=== PATIENT | female | born 1995 | race Caucasian/White ===

== ENCOUNTER → 2019-12-22 13:26 | Outpatient (CLI) | payer BC, SELFPAY ==
--- NOTE | ~2019-12-22 | US_ITS ---
EXAMINATION: US transvaginal DATE: 12/22/2019 13:46 INDICATION: Abnormal uterine bleeding TECHNIQUE: Multiple endovaginal sonographic images of the pelvis were obtained. COMPARISON: None. FINDINGS: The uterus measures 7.1 x 2.8 x 3.3 cm. The endometrial complex measures 6 mm. The right ov eliezer measures 2.5 x 1.6 x 2.6 cm. The left ovary measures 2.1 x 1.5 x 2.3 cm. There is normal vascular flow in the ovaries. There is no free fluid in the pelvis. IMPRESSION: 1. No sonographic correlate for the patient's symptoms. Reviewed, dictated and finalized at location B.
== END ==
PROVIDERS: Visit Provider Obstetrics & Gynecology
DX: N93.8 Other specified abnormal uterine and vaginal bleeding (principal)
CPT/HCPCS: 76830

== ENCOUNTER → 2021-02-22 08:18 | Outpatient (CLI) | payer MEDICAID, SELFPAY ==
--- NOTE | ~2021-02-22 | US_ITS ---
EXAMINATION: US OB <=14 wk fetus w TV DATE: 02/22/2021 08:58 INDICATION: First trimester dating TECHNIQUE: Real-time pelvic transabdominal and transvaginal ultrasound was performed. COMPARISON: None. FINDINGS: There is an intrauterine gestational sac. A yolk sac is identified. heart motion is i dentified measuring 168 beats per minute (bpm) by M-mode Doppler. The crown rump length measure s 2.3 cm , which correlates with an estimated gestational age of 9 weeks and 0 day(s) (+/-) 6 day(s). The ovaries are not visualized however no adnexal abnormality is seen. There is no free fluid in the pelvis. IMPRESSION: 1. Live intrauterine with an estimated gestational age of 9 weeks and 0 day(s) (+/-) 6 day( s) and an estimated delivery date of 09/27/2021. Reviewed, dictated and finalized at location A. ECT DEVELOPMENT ENGINEER IMPRESSION: 1. Live intrauterine with an estimated gestational age of 9 weeks and 0 day(s) (+/-) 6 day(s) and an estimated delivery date of 09/27/2021.
== END ==
PROVIDERS: Visit Provider Obstetrics & Gynecology
DX: Z36.89 Encounter for other specified antenatal screening (principal); Z3A.09 9 weeks gestation of pregnancy
CPT/HCPCS: 76801; 76817

== ENCOUNTER 2021-08-11 10:08 | Outpatient (RCR) | payer OTHER, SELFPAY ==
--- NOTE | ~2021-08-11 | US_ITS ---
EXAMINATION: US OB BPP wo non-stress DATE: 08/11/2021 13:28 INDICATION: decelerations during third trimester TECHNIQUE: Real-time pelvic ultrasound was performed. The interpreting radiologist was not present fo r the study. COMPARISON: None. FINDINGS: There is a single living fetus in vertex presentation. The placenta is anterior. heart rate is 150 beats per minute (bpm). Biophysical profile performed by the technologist: breathing (30 sec sustained breathing in 30 minutes): 2 out of 2 movement (3 gross body movements in 30 minutes): 2 out of 2 tone (one episode of ivxhioe-rhgrplgyk-gscueyu limb movement): 2 out of 2 Amniotic fluid pocket (2 cm): 2 out of 2 Total score: 8 out of 8 IMPRESSION: 1. Single living fetus in vertex presentation. 2. Biophysical profile 8 out of 8. Reviewed, dictated and finalized at location A.
[2021-08-11 14:49] VITALS: BP 116/71; PULSE 89
== END 2021-10-21 10:47 | disposition home or self-care (01) ==
LOC: ANHOBOP 10:08
PROVIDERS: Visit Provider Obstetrics & Gynecology Gynecology
DX: O36.8330 Maternal care for abnormalities of the fetal heart rate or rhythm, third trimester, not applicable or unspecified (principal); Z86.16 Personal history of COVID-19; Z3A.34 34 weeks gestation of pregnancy
CPT/HCPCS: 59025; 76819

== ENCOUNTER 2021-08-28 15:15 | Inpatient (IN) | payer OTHER, SELFPAY ==
--- NOTE | ~2021-08-28 | US_ITS ---
EXAMINATION: US OB limited w BPP DATE: 08/29/2021 07:16 INDICATION: Low amniotic fluid index during third trimester TECHNIQUE: Real-time pelvic ultrasound was performed. The interpreting radiologist was not present fo r the study. COMPARISON: 08/28/2021 FINDINGS: There is a single living fetus in vertex presentation. The placenta is anterior. heart rate is 144 beats per minute (bpm). The amniotic fluid index is 4.2 cm which is low (normal range: 7.7 cm to 24.9 cm). Biophysical profile performed by the technologist: breathing (30 sec sustained breathing in 30 minutes): 2 out of 2 movement (3 gross body movements in 30 minutes): 2 out of 2 tone (one episode of nxshgya-jengfzqjl-yrktfqc limb movement): 2 out of 2 Amniotic fluid pocket (2 cm): 2 out of 2 Total score: 8 out of 8 IMPRESSION: 1. Single living fetus in vertex presentation. 2. Biophysical profile 8 out of 8. 3. Oligohydramnios. Reviewed, dictated and finalized at location A.
--- NOTE | ~2021-08-28 | US_ITS ---
EXAMINATION: US OB follow up DATE: 08/28/2021 15:09 INDICATION: Evaluate growth. TECHNIQUE: Real-time ultrasound of the pelvis was performed. The interpreting radiologist was not pre sent for the study. COMPARISON: Comparison to multiple prior studies sequentially, with oldest reviewed study dated 25/05. . FINDINGS: There is a single living fetus in vertex presentation. The placenta is anterior. cardiac activ ity and movement are noted. heart rate is 141 beats per minute (bpm). The amniotic fluid index is 4.8 cm cm, which is below normal. Normal range for amniotic fluid index for gestational age is 7.7-24.9 cm. The following biometric data were obtained: BPD: 90 cm corresponds to gestational age 36 weeks 3 day(s). Head circumference: 318 cm corresponds to gestational age 35 weeks 5 day(s). Abdominal circumference: 292 cm corresponds to gestational age 33 weeks 1 day(s). Femur length: 68 cm corresponds to gestational age 35 weeks 1 day(s). Head circumference to abdominal circumference ratio: 1.09 Estimated weight: 2343 g plus or minus 422 g, 5.6% using Hadlock method. Biophysical profile performed by the technologist: breathing (30 sec sustained breathing in 30 minutes): 2 out of 2 movement (3 gross body movements in 30 minutes: 2 out of 2 tone (one episode of sriqufy-amrowelbr-akhcptp limb movement): 0 out of 2 Amniotic fluid pocket (2 cm): 2 out of 2 Total score: 6 out of 8 Umbilical artery pulsed Doppler demonstrates peak systolic to end-diastolic velocity ratios (S/D rati os) of 2.5 (5th percentile = 1.9, 95th percentile = 3.2). IMPRESSION: 1. Single living fetus in vertex presentation with heart rate of 141 bpm. 2. Oligohydramnios with LUDY of 4.8 cm. 3. Biophysical profile 6 out of 8. 4. Gestational age by ultrasound of 36 weeks 4 day(s) with ultrasound estimated date of delivery (IZABEL ) of 09/21/2021. Please correlate with clinical information or other ultrasounds for most accurate IZABEL . 5. Estimated weight is 2343 g, 5.4% by Hadlock criteria. 6: Normal umbilical Doppler ratios. Reviewed, dictated and finalized at location B. IMPRESSION: 1. Single living fetus in vertex presentation with heart rate of 141 bpm. 2. Oligohydramnios with LUDY of 4.8 cm. 3. Biophysical profile 6 out of 8. 4. Gestational age by ultrasound of 36 weeks 4 day(s) with ultrasound estimated date of delivery (IZABEL) of 09/21/2021. Please correlate with clinical informatio n or other ultrasounds for most accurate IZABEL. 5. Estimated weight is 2343 g, 5.4% by Hadlock criteria. 6: Normal umbilical Doppler ratios.
[2021-08-28 15:45] VITALS: BMI 29.7
[2021-08-28 15:48] VITALS: BP 122/69; PULSE 72
[2021-08-28 16:01] VITALS: BP 121/65; PULSE 74
[2021-08-28 16:16] VITALS: BP 119/67; PULSE 71
--- NOTE | 2021-08-28 16:17 | OBADM ---
This patient, Ashly Desouza, admitted to the OB room OB Post 116 for observation. Patient/family oriented to hospital policies and general routines including ID bracelet, bed and alarms, visiting hours, pain management, procedures, bathroom and other care routines, personal items, smoking policy, room service/diet, and visiting hours. Patient/Family are encouraged to report perceived risks to care and to ask questions if they do not understand what they are told or what they should do.
[2021-08-28 16:23] VITALS: BP 119/67
[2021-08-28 20:58] VITALS: BP 125/74; PULSE 78
[2021-08-29] VITALS (123 sets, daily range): BP systolic 96–126; BP diastolic 48–87; PULSE 60–110; TEMP 36.2–36.8; O2SAT 80–100
--- NOTE | 2021-08-29 07:32 | WPDOBADMIT ---
Obstetrics - Admit Note Admission Note: record reviewed. No pertinent additions to the history and/or any subsequent changes in the physical findings that are not consistent with the expected course of the were found. Additions to the history and/or subsequent changes in the physical findings follow. Here overnight after BPP 6/8 and LUDY low at 4. BPP this am 10/10 and LUDY still 4. Recommend MIL. Patient agrees. Will start Pitocin.
[2021-08-29] MEDS: OXYTOCIN 30 UNITS/NS 500 ML 30 UNITS/500 ML BAG 6 UNITS IV CONT (08:41)
[2021-08-29] MEDS: AMPICILLIN 2 GM/NS 100 ML 2 GM/100 ML BAG IVPB (08:42)
[2021-08-29] MEDS: LACTATED RINGERS 1,000 ML 125 ML IV CONT ×2 (08:43→20:04)
[2021-08-29 09:04] LABS: Basophils Percent Auto 0.2 % (0.2-1.2); Eosinophils Percent Auto 0.3 % (0-4.4); Hematocrit 34.7 % (37.0-47.0); Hemoglobin 11.5 g/dL (12.0-15.0); Immature Granulocyte Absolute 0.05 K/mm3 (0.00-0.031); Immature Granulocyte Percent A 0.6 % (0-0.5); Lymphocytes Absolute Auto 1.47 K/mm3 (0.9-3.2); Lymphocytes Percent Auto 16.5 % (18.3-44.2); Mean Corpuscular HGB Conc 33.1 g/dl (32-36); Mean Corpuscular Hemoglobin 30.9 pg (26-34); Mean Corpuscular Volume 93.3 fl (80-100); Mean Platelet Volume 12.4 fl (7.4-10.4); Monocytes Absolute Auto 0.5 K/mm3 (0.1-0.6); Monocytes Percent Auto 5.9 % (2.6-8.5); Neutrophils Absolute Auto 6.8 K/mm3 (1.3-6.7); Neutrophils Percent Auto 76.5 % (45.5-73.1); Platelet Count Result 171 k/mm3 (150-375); Red Blood Count 3.72 M/mm3 (4.2-5.4); Red Cell Distribution Width 13.2 % (11.5-14.5); White Blood Count 8.9 K/mm3 (4.5-10.0)
--- NOTE | 2021-08-29 09:21 | LDADM ---
This patient, Ashly Desouza, was admitted to Labor/Delivery/Recovery 107 on 08/29/21 at 07:38. Plans for labor, pain management and were discussed with patient. Patient/family oriented to hospital policies and general routines including ID bracelet, bed and alarms, visiting hours, pain management, procedures, bathroom and other care routines, personal items, smoking policy, room service/diet and guest tray routines, security routines, and visiting hours. Patient/Family are encouraged to report perceived risks to care and to ask questions if they do not understand what they are told or what they should do. See OBIX for further documentation.
--- NOTE | 2021-08-29 09:52 | PC.NURSE ---
0700--Pt to US per wheelchair.
--- NOTE | 2021-08-29 09:53 | PC.NURSE ---
4924--Dr. Kay at bedside to report US results. Plan of care discussed. Questions answered. Plan to sara pt to L&D 107.
[2021-08-29] MEDS: AMPICILLIN 1 GM/NS 50 ML 1 GM/50 ML BAG IVPB ×3 (12:35→20:51)
--- NOTE | 2021-08-29 17:33 | PM.OBPNLAB ---
Pain Control Date/time seen: 08/29/21 17:33 Pain control: tolerating well Pelvic Exam Dilation (cm): 1 Effacement (%): 70 station: -2 Amniotic membrane status: Ruptured (clear fluid. ) Status status: Category l Assessment and Plan Assessment: induction ongoing Plan: continuous present management
[2021-08-29] MEDS: ONDANSETRON INJ 4 MG/2 ML VIAL IV PUSH (18:18)
--- NOTE | 2021-08-29 18:57 | WPDANESEPP ---
Anes - Eval Pre Procedure Procedure: Labor epidural Date/Time: 08/29/21 18:57 Surgeon: Eliza Preop Diagnosis: Abd pain with contractions Pre Op Diagnosis: Ultrasound Patient Data Age: 25 Gender: F Height: 1.7 m Weight: 86 kg Last Vital Signs Temp 98 F 08/29/21 18:54 Pulse 90 08/29/21 18:55 BP 120/69 08/29/21 18:55 Pulse Ox 100 08/29/21 18:52 Allergies Allergy/AdvReac Type Severity Reaction Status Date / Time melatonin Allergy Mild dizzy Verified 11/16/19 09:16 Home Medications Medication Instructions Recorded Confirmed Type PNV cmb#95-ferrous fumarate-FA 1 tablet PO DAILY 08/28/21 08/29/21 History [] cholecalciferol (vitamin D3) 50 mcg PO DAILY 08/28/21 08/28/21 History [Vitamin D3] ferrous sulfate [Iron (ferrous 325 mg PO DAILY 08/28/21 08/29/21 History sulfate)] Laboratory Tests 08/29/21 08/29/21 08/29/21 08:57 08:57 08:57 WBC 8.9 K/mm3 K/mm3 (4.5-10.0) RBC 3.72 M/mm3 L M/mm3 (4.2-5.4) Hgb 11.5 g/dL L g/dL (12.0-15.0) Hct 34.7 % L % (37.0-47.0) MCV 93.3 fl fl (80-100) MCH 30.9 pg pg (26-34) MCHC 33.1 g/dl g/dl (32-36) RDW 13.2 % % (11.5-14.5) Plt Count 171 k/mm3 k/mm3 (150-375) MPV 12.4 fl H fl (7.4-10.4) Immature Gran % (Auto) 0.6 % H % (0-0.5) Neut % (Auto) 76.5 % H % (45.5-73.1) Lymph % (Auto) 16.5 % L % (18.3-44.2) [place] % (Auto) 5.9 % % (2.6-8.5) Eos % (Auto) 0.3 % % (0-4.4) Baso % (Auto) 0.2 % % (0.2-1.2) Lymph # (Auto) 1.47 K/mm3 K/mm3 (0.9-3.2) [place] # (Auto) 0.5 K/mm3 K/mm3 (0.1-0.6) Eos # (Auto) 0.0 K/mm3 K/mm3 (0-0.3) Baso # (Auto) 0.0 K/mm3 K/mm3 (0.0-0.1) Abs Immat Gran (auto) 0.05 K/mm3 H K/mm3 (0.00-0.031) Absolute Neuts (auto) 6.8 K/mm3 H K/mm3 (1.3-6.7) Absolute Nucleated RBC 0.0 K/mm3 K/mm3 (0.0-0.012) Nucleated RBC % 0.0 % % (0.0-0.2) RPR Pending Blood Type O Positive Antibody Screen Negative Patient hx anesthesia problems: none Family hx anesthesia problems: none Results Review: All pre-operative results and documents have been reviewed as part of the pre-operative evaluation. [facility] Past Medical History Medical History BMI 25.0-25.9,adult Overweight (BMI 25.0-29.9) and not yet delivered Family History Family History Mother Diabetes mellitus Hypertension Grandparent Cancer Social History Social History Smoking status: Never smoker Alcohol intake: current Alcohol use details: occasional Substance use: never Additional occupation/education comments: [employer] Gender identity (if verbalized by the patient): Female Spiritual care concerns: No Exam Day of Procedure 08/29/21 18:57 Patient weight: overweight Airway: Mallampati scale class II Neurological: alert and oriented
[2021-08-30] VITALS (27 sets, daily range): BP systolic 108–125; BP diastolic 56–77; PULSE 72–138; RESP 16–18; TEMP 36.6–37.3; O2SAT 98–100
--- NOTE | 2021-08-30 00:46 | PM.OBPRVD ---
OB - Delivery Note Procedure Delivery date: 08/30/21 Procedure: Events: Oligohydramnios and Other (COVID + in ) Induction method: AROM and Per Pitocin Protocol Delivery monitor: External FHT and Internal Uterine Route of delivery: Laceration Description: Periurethral and Perineal - 2nd Degree Delivery repair: vicryl (3-0) Specimen: Yes (placenta) Quantitative Blood Loss (ml): 100 Anesthesia type: Epidural Disposition: Floor Baby Date of : 08/30/21 Weeks of gestation at delivery: 36 gender: Male Weight (pounds): 5 Weight (ounces): 9 presentation: vertex position: Right Occiput Anterior Placenta delivery description: Spontaneous Cord Vessel Description: Nuchal Cord (tight x 1 delivered through) and Delayed Cord Clamping score one minute: 8 score five minutes: 9
--- NOTE | 2021-08-30 00:48 | PM.OBDSVD ---
DS: Admitting Diagnosis Discharge Date 09/01/21 Admitting Diagnosis IUP 36 4/ Oligohydramnios Covid + in DS: Discharge Diagnosis Discharge Diagnosis (1) (normal spontaneous vaginal delivery): Code(s): O80 - Encounter for full-term uncomplicated delivery Status: Acute (2) Oligohydramnios: Code(s): O41.00X0 - Oligohydramnios, unspecified trimester, not applicable or unspecified Status: Acute (3) 36 to 37 weeks gestation of : Status: Acute OB - DS: Summary OB Procedures : NST and Ultrasound OB Procedures Intrapartum: Spontaneous Vag Delivery OB Procedures: : None Peripartum Data Delivery Method: Natural Vaginal Laceration Description: Periurethral and Perineal - 2nd Degree complications: none Status at Discharge Functional status at discharge: independent ambulation Overall status at discharge: patient is progressing back to baseline Time Spent with Patient Time attestation: Total time spent providing and/or coordinating discharge services: DS: Data Data Completed and Pending Labs on day of discharge: Labs from last 24 hours 08/29/21 08/29/21 08/29/21 08:57 08:57 08:57 WBC 8.9 RBC 3.72 L Hgb 11.5 L Hct 34.7 L MCV 93.3 MCH 30.9 MCHC 33.1 RDW 13.2 Plt Count 171 MPV 12.4 H Immature Gran % (Auto) 0.6 H Neut % (Auto) 76.5 H Lymph % (Auto) 16.5 L [place] % (Auto) 5.9 Eos % (Auto) 0.3 Baso % (Auto) 0.2 Lymph # (Auto) 1.47 [place] # (Auto) 0.5 Eos # (Auto) 0.0 Baso # (Auto) 0.0 Abs Immat Gran (auto) 0.05 H Absolute Neuts (auto) 6.8 H Absolute Nucleated RBC 0.0 Nucleated RBC % 0.0 RPR Pending Blood Type O Positive Antibody Screen Negative Discharge Plan Discharge Attending physician on discharge: Betina Kay Discharging Clinician: Betina Kay Anticipated Discharge Date/Time: 09/01/21 00:50 Patient Disposition: Home, Self-Care Activity: may shower and pelvic rest Diet: regular Discharge Instructions: Education: Mom and Baby Guide Given to: Mother Follow-Up: Call your delivering provider's office for an appointment to be seen in: 6 Weeks Mom and baby should come to the [facility] for the follow-up appointment. Appointment Date/Time: Thursday, September 02, 2021 at 11:00 am What to expect at your follow-up visit: Blood Pressure Check Physical Assessment Call [phone] if you are unable to keep your appointment time. BREAST CARE: * Wear a snug supportive bra. * For engorgement discomfort: Breast Feeding: * Apply warm moist washcloths * Express milk as needed to relieve engorgement * Wear loose clothing Bottle Feeding: * May apply ice packs * For sore nipples: * Identify correct latch-on * Apply warm moist washcloths before and after nursing * Air dry nipples after nursing * May apply Lansinoh cream to nipples EPISIOTOMY/PERINEAL CARE: * Until bleeding stops, use your micky bottle after urinating * Change your pad frequently throughout the day * You may take sitz baths several times a day (fill your bathtub with warm water and soak for 20 minutes.) Do NOT bathe in the water * No tub baths until seen by your physician - You may shower ACTIVITY: * Rest as much as possible. * Do not exercise or lift anything heavier than your baby (such as laundry or other children.) * Avoid stairs or driving as much as possible. * Do not put anything into the vagina. No douching, tampons, or sexual activity until seen by physician. NOTIFY PHYSICIAN IF YOU HAVE ANY QUESTIONS OR IF ANY OF THE FOLLOWING SYMPTOMS OCCUR: * If your episiotomy becomes red, swollen, or more painful than what you have experienced in the hospital. * If your vaginal bleeding becomes foul smelling. * If your vaginal bleedin
[2021-08-30] MEDS: OXYTOCIN 30 UNITS/NS 500 ML 30 UNITS/500 ML BAG 125 UNITS IV CONT (01:02)
--- NOTE | 2021-08-30 03:32 | OBPPTRN ---
Patient transferred to post room #291 via wheelchair. Support person present. Oriented to unit, room, information board, rooming in, admission packet and security measures. Patient verbalizes understanding.
[2021-08-30] MEDS: IBUPROFEN 600 MG TABLET PO ×2 (09:24→14:09)
[2021-08-30] MEDS: DOCUSATE SODIUM 100 MG CAPSULE PO ×2 (09:24→18:28)
[2021-08-30] MEDS: MULTIVIT/MIN/PREN/FOL AC/IRON TABLET 1 TAB PO (09:24)
--- NOTE | 2021-08-30 12:00 | PC.NURSE ---
Breast pump provided due to ineffective feeding and prematurity. Instructions given on cleaning, care, usage, there should be no pain, pumping schedule for milk production, collection, and storage of human milk. Parents are encouraged to record pumping schedule on the [feeding sheet/pumping log]. Patient was assessed for correct placement, flange size, to pump for comfort and nipple stretching/stimulation for adequate milk production. Mother voiced understanding of the education shared.
[2021-08-30] MEDS: ACETAMINOPHEN 325 MG TABLET 650 MG PO (14:08)
[2021-08-30] MEDS: BENZOCAINE 20% AER SPR (*SP) 56 GM CAN 1 SPRAY TOPICAL (18:28)
[2021-08-30] MEDS: WITCH HAZEL 40 PADS 1 PAD TOPICAL (18:28)
[2021-08-30] MEDS: LANOLIN (LANSINOH) 7.5 GM CREAM 1 APPLIC TOPICAL (18:29)
[2021-08-31] VITALS: BP 118/77; PULSE 72; RESP 16; TEMP 36.4; O2SAT 97
[2021-08-31] MEDS: ACETAMINOPHEN 325 MG TABLET 650 MG PO ×4 (00:07→23:37)
[2021-08-31] MEDS: IBUPROFEN 600 MG TABLET PO ×4 (00:07→23:37)
[2021-08-31 04:38] LABS: Hematocrit 30.3 % (37.0-47.0); Hemoglobin 9.9 g/dL (12.0-15.0)
--- NOTE | 2021-08-31 07:30 | PC.NURSE ---
PT introductions made and plan of care discussed per post , pain management, breast feeding, daily care activities, late baby, and pending discharge to home. PT sole recipient of such care and no barriers to leaning identified, PT received such instructions per one to one discussion, mom baby care guide and demonstrations this shift. PT verbalized understanding of such care.
[2021-08-31 08:30] VITALS: BP 115/63; PULSE 65; RESP 18; TEMP 36.7; O2SAT 99
--- NOTE | 2021-08-31 09:28 | PM.OBPNVD ---
OB - PN: Subj Subjective Date/time seen: 08/31/21 09:28 Patient comments: no complaints and pain well controlled baby status: doing well OB - PN: Obj Data Labs CBC & Chem 7: 08/31/21 03:58 Labs: Laboratory Results - last 24 hr 08/31/21 03:58 Hgb 9.9 L Hct 30.3 L OB - PN A/P Plan day: 1 Plan: routine care Time Spent With Patient Time: Total time spent is greater than 50% in coordination of care (as documented) at patient's floor/unit and/or counseling patient: Exam : Bimanual exam- vagina & uterus: other (Uterus firm, nt @U)
[2021-08-31] MEDS: POLYSACCHARIDE IRON COMPLEX 150 MG CAPSULE PO ×2 (11:37→17:49)
[2021-08-31] MEDS: DOCUSATE SODIUM 100 MG CAPSULE PO ×2 (11:37→17:49)
[2021-08-31] MEDS: MULTIVIT/MIN/PREN/FOL AC/IRON TABLET 1 TAB PO (11:37)
[2021-08-31 20:08] VITALS: BP 114/64; PULSE 72; RESP 18; TEMP 36.4; O2SAT 100
[2021-09-01 05:10] VITALS: BP 119/83; PULSE 77; RESP 20; O2SAT 100
--- NOTE | 2021-09-01 05:16 | ECG_ITS ---
Measurements Intervals [place] Rate: 72 P: 57 MD: 161 QRS: 48 QRSD: 97 T: 65 QT: 372 QTc: 408 Interpretive Statements SINUS RHYTHM BORDERLINE T WAVE ABNORMALITY- ANT/INF LEADS BASELINE ARTIFACT- I, II, III, AVR, AVL, AVF BORDERLINE ECG Electronically Signed On 09-01-2021 5:42:55 CDT by Tommy Begum D.O.
[2021-09-01] MEDS: ACETAMINOPHEN 325 MG TABLET 650 MG PO (05:19)
[2021-09-01] MEDS: SIMETHICONE 80 MG TAB.CHEW PO (05:20)
[2021-09-01] MEDS: IBUPROFEN 600 MG TABLET PO (05:20)
--- NOTE | 2021-09-01 05:27 | PC.NURSE ---
0510 -- pt c/o chest tightness and feeling of heaviness, VS taken, pt. seems calm, states bleeding has not been heavy though pt. looks fairly pale, denies feeling anxious 0515 -- call to Dr. Kay -->orders
[2021-09-01 06:16] LABS: Rapid Plasma Reagin Non-Reactive (NonReactive)
--- NOTE | 2021-09-01 07:39 | PC.NURSE ---
Self care and infant care discharge instructions given including follow up visit date and time. Pt. verbalized understanding. No questions or concerns voiced. Very pleasant and cooperative. FOB at side.
--- NOTE | 2021-09-01 07:42 | PC.NURSE ---
Patient viewed the discharge video Mother & Baby Care, The First Two Weeks . Patient was given the opportunity and encouraged to ask questions. Patient verbalized understanding of information shared and has been given the mother/baby guide for home reference.
--- NOTE | 2021-09-01 08:09 | P.PNOB_ITS ---
OB - PN: Subj Subjective Date/time seen: 09/01/21 08:09 Patient comments: no complaints, pain well controlled and other (had episode of chest pain x 2 and resolved) [place] baby status: doing well and nursing well OB - PN: Obj Data Labs CBC & Chem 7: 08/31/21 03:58 Labs: Laboratory Results - last 24 hr 08/29/21 08:57 RPR Non-reactive OB - PN A/P Plan day: 2 Plan: routine care, discharge home, follow up 6 weeks and other (plan micronor for bc) Time Spent With Patient Time: Total time spent is greater than 50% in coordination of care (as documented) at patient's floor/unit and/or counseling patient: Exam : Bimanual exam- vagina & uterus: other (Uterus firm, nt @U)
[2021-09-01 08:25] VITALS: BP 123/75; PULSE 62; RESP 18; TEMP 36.3; O2SAT 100
[2021-09-01] MEDS: MULTIVIT/MIN/PREN/FOL AC/IRON TABLET 1 TAB PO (08:28)
[2021-09-01] MEDS: DOCUSATE SODIUM 100 MG CAPSULE PO (08:29)
[2021-09-01] MEDS: POLYSACCHARIDE IRON COMPLEX 150 MG CAPSULE PO (08:29)
[2021-09-01] MEDS: MEASLES,MUMPS,RUBELLA VACCINE 0.5 ML VIAL SUB-Q (10:14)
--- NOTE | 2021-09-01 15:50 | PC.NURSE ---
[id number] Introductions were made and Mother led the conversation with her experience and plan to feed her so far and her ability to independently latch infant optimally without discomfort. Reminded parents to use good handwashing technique to prevent infection. Mother is feeding appropriately for growth of and understands stimulating to eat if needed. has had appropriate feedings in the last 24 hours meets the outcomes for weight, output and jaundice at this time. Mother states she is confident to continue effectively her at home or when to call for assistance and denies any additional assistance or education at this time. Mother placed infant skin to skin and burped due to was sleepy and reluctant to wake and feed. RN changed a void and stool diaper, then was eager to breastfeed. Mother assisted to the right breast using cross cradle positioning and latched infant optimally. Reviewed with mom the signs to visualize for good suck/swallow ratios. Reinforced understanding of milk production, transition of milk, signs of adequate intake, prevention/relief of engorgement, responsive after visualizing feeding cues, the different methods of stimulating infant to breastfeed 2-3 hours after the start of the last feeding, community resources, medication information reviewed per [employer] and when to call a provider using the resource of the mom and baby guide/[facility] website. Mother voiced understanding of the education shared.
[2021-09-02 10:52] VITALS: BP 129/80; PULSE 78; RESP 20; TEMP 37.1; O2SAT 98
== END 2021-09-01 10:50 | disposition home or self-care (01) | DRG 560 ==
LOC: ANHOBPP 15:30 → ANHLDR 08-29 07:40 → ANHOB2 08-30 03:33
PROVIDERS: Admitting Provider Obstetrics & Gynecology Gynecology; Visit Provider Obstetrics & Gynecology Gynecology
DX: O41.03X0 Oligohydramnios, third trimester, not applicable or unspecified (principal); O70.1 Second degree perineal laceration during delivery; O71.82 Other specified trauma to perineum and vulva; O69.1XX0 Labor and delivery complicated by cord around neck, with compression, not applicable or unspecified; O76 Abnormality in fetal heart rate and rhythm complicating labor and delivery; Z3A.36 36 weeks gestation of pregnancy; Z37.0 Single live birth; Z86.16 Personal history of COVID-19; R07.9 Chest pain, unspecified
CPT/HCPCS: 36415; 59025; 76815; 76816; 76819; 85014; 85018; 85025; 86592; 86850; 86900; 86901; 88307; 90710; 93005; A9270; J0290; J2405; J2590; J2795; J7120

== ENCOUNTER 2021-12-03 12:22 | Outpatient (CLI) | payer OTHER, SELFPAY ==
--- NOTE | 2021-12-03 | ECHO_ITS ---
Patient Info Name: Ashly Desouza Age: 26 years : 1995 Gender: Female Ht: 67 in Wt: 167 lbs BSA: 1.91 m2 HR: 68 bpm BP: 124 / 75 mmHg Heart Rhythm: Sinus Rhythm Exam Date: 12/03/2021 1:06 PM Exam Location: [facility] Pulmonary Patient Status: Outpatient Admit Date: 12/03/2021 Staff Ordering Physician: NicoViky Dressage Judge: Seda Souza RDCS Attending Provider: Yajaira, Viky PEREA Referring Physician: Nico WILDE; Exam Type: CA echo doppler color flow Study Info Indications R00.2 - Palpitations Complete two-dimensional, color flow and Doppler transthoracic echocardiogram is performed. Summary 1. Complete two-dimensional, color flow and Doppler transthoracic echocardiogram is performed. 2. Left ventricular chamber dimension is normal. 3. Left ventricular systolic function is normal, estimated at 65-70%. 4. There is no increased left ventricular wall thickness. 5. The left ventricular diastolic function is normal. 6. There is trace tricuspid valve regurgitation. 7. Unable to estimate PA systolic pressure due to poor spectral resolution of tricuspid regurgitant jet velocity. Left Ventricle Left ventricular chamber dimension is normal. Left ventricular systolic function is normal, estimated at 65-70%. There is no increased left ventricular wall thickness. The left ventricular diastolic function is normal. Right Ventricle Right ventricular chamber dimension is normal. Right ventricular systolic function is normal. Left Atria Left atrial chamber dimension is normal. Right Atria Right atrial chamber dimension is normal. Aortic Valve The aortic valve is trileaflet. There is no aortic valve stenosis. There is no aortic valve regurgitation. Pulmonic Valve The pulmonic valve is not well visualized. There is trace pulmonic regurgitation. Mitral Valve The mitral valve has normal leaflets. There is no mitral valve regurgitation. Tricuspid Valve The tricuspid valve leaflets are normal. There is trace tricuspid valve regurgitation. Unable to estimate PA systolic pressure due to poor spectral resolution of tricuspid regurgitant jet velocity. Pericardium/Pleural The pericardium appears normal. There is no pericardial effusion. Inferior Vena Cava Normal inferior vena cava with >50% collapse upon inspiration consistent with normal right atrial pressure, 5 mmHg. Aorta The aortic root size at the sinus of Valsalva is normal. Left Ventricular Outflow Tract Name Value Normal LVOT 2D LVOT Diameter 2.1 cm LVOT Doppler LVOT Peak Gradient 3 mmHg LVOT Mean Gradient 2 mmHg LVOT VTI 16 cm LVOT VTI/AV VTI Ratio 0.7 LVOT Stroke Volume 55 ml LVOT CO 4.2 l/min LVOT CI 2.2 l/min/m2 Mitral Valve Name Value Normal
--- NOTE | 2021-12-08 15:56 | WPDHOLTEREM ---
Holter/Event Monitor Holter/Event Monitor Date of procedure: 12/03/21 Holter/Event Procedure: 48 Hr Holter Monitor Indications: Palpitations Conclusion: 1. 48 hour holter monitor on 12/03/21. 2. Underlying rhythm is sinus rhythm. HR range 42-141 bpm; average HR 73 bpm. 3. No premature supraventricular complexes. No supraventricular tachycardia. 4. There are 2 premature ventricular complexes, 1 ventricular couplet, 3 ventricular bigeminy. No ventricular tachycardia. 5. No sinoatrial or atrioventricular blocks. No significant pauses greater than 2 seconds. 6. Patient reports symptom of flutter which demonstrate sinus rhythm, HR at 71 bpm.
== END 2021-12-03 12:23 | disposition home or self-care (01) ==
LOC: ANHCARD 12:23
PROVIDERS: Visit Provider Nurse Practitioner Family
DX: R00.2 Palpitations (principal); F41.9 Anxiety disorder, unspecified; E55.9 Vitamin D deficiency, unspecified
CPT/HCPCS: 93225; 93226; 93306

== ENCOUNTER 2023-04-29 20:55 | Emergency (ER) | payer OTHER, SELFPAY ==
[2023-04-29 21:02] VITALS: BP 137/71; PULSE 92; RESP 18; TEMP 36.6; O2SAT 100
--- NOTE | 2023-04-30 00:11 | PC.NURSE ---
Patient called for ED room. No answer
--- NOTE | 2023-04-30 00:43 | PC.NURSE ---
No answer when called for room.
== END 2023-04-30 00:11 | disposition left against medical advice (07) ==
DX: R51.9 Headache, unspecified (principal)
CPT/HCPCS: 99199

== ENCOUNTER 2023-05-17 16:14 | Outpatient (CLI) | payer OTHER, SELFPAY ==
--- NOTE | ~2023-05-17 | MR_ITS ---
EXAMINATION: MR brain/brain stem wo/w con DATE: 05/17/2023 17:19 INDICATION: Headache TECHNIQUE: Magnetic resonance imaging (MRI) of the brain and brainstem was performed without and with 15 mL Multihance intravenous contrast. Sequences included sagittal and axial T1-weighted SE, axial d iffusion-weighted FS SE, axial 3D SWAN, axial T2-weighted FLAIR, and axial T2-weighted FSE. Postcontr ast axial and coronal T1-weighted SE was obtained. Apparent diffusion coefficient (ADC) maps were cre ated. COMPARISON: None. FINDINGS: There are no areas of restricted diffusion to suggest acute infarction. No intracranial hemorrhage or abnormal intracranial mass lesion. There are no intraparenchymal signal abnormalities seen on the ot her pulse sequences. The ventricles are symmetric and normal in size. There are no abnormal extra-axi al fluid collections. Flow voids are seen in the cerebral arteries on the T2-weighted sequences consi stent with their expected patency. Mucous retention cyst at the floor of the left maxillary sinus. Vi sualized orbits and soft tissues are unremarkable. There are no areas of abnormal enhancement on the post contrast images. IMPRESSION: 1. Normal brain. Reviewed, dictated and finalized at location A. [employer] IMPRESSION: 1. Normal brain.
== END 2023-05-17 16:15 | disposition home or self-care (01) ==
LOC: ANHIMG 16:16
PROVIDERS: PCP Nurse Practitioner Family; Visit Provider Nurse Practitioner Family
DX: R51.9 Headache, unspecified (principal)
CPT/HCPCS: 70553; A9577

== ENCOUNTER 2024-11-03 16:53 | Emergency (ER) | payer OTHER, SELFPAY ==
--- NOTE | 2024-11-03 16:55 | ED.FEMALEGU ---
HPI - Female Genitourinary General Chief complaint: Urogenital-Female Stated complaint: UTI SYMPTOMS Time Seen by Provider: 11/03/24 17:18 Source: patient and RN notes reviewed Mode of arrival: ambulatory Limitations: no limitations History of Present Illness HPI Narrative: 28-year-old female presents with concern for vaginal itching. She reports that started yesterday with itching, skin irritation and redness and white clumpy discharge. She denies concern for STDs. She denies dysuria, frequency, urgency. MD elicited complaint: genital itching Related Data Home Medications ?Medication ?Instructions ?Recorded ?Confirmed ?Last Taken ?Type cholecalciferol (vitamin D3) 50 50 mcg PO DAILY 08/28/21 08/28/21 Unknown History mcg (2,000 unit) tablet (Vitamin D3) ferrous sulfate 325 mg (65 mg 325 mg PO DAILY 08/28/21 08/29/21 08/28/21 12:00 History iron) tablet (Iron (ferrous sulfate)) vit no.95-ferrous 1 tablet PO DAILY 08/28/21 08/29/21 08/28/21 12:00 History fumarate 28 mg-folic acid 800 mcg tablet () Allergies Allergy/AdvReac Type Severity Reaction Status Date / Time iohexol (From contrast - CT, Allergy Severe Swelling Verified 11/03/24 17:15 X-RAY) of Lip/Tongue/Throat terconazole Allergy Intermediate Vaginal Verified 11/03/24 17:15 burning and swelling melatonin Allergy Mild dizzy Verified 11/16/19 09:16 Review of Systems Review of Systems: CONSTITUTIONAL: Denies malaise, chills, sweats, or fever. CARDIOVASCULAR: Denies chest pain, palpitations, or edema. RESPIRATORY: Denies cough or dyspnea. GASTROINTESTINAL: Denies abdominal pain, nausea, vomiting, diarrhea GENITOURINARY: Denies dysuria, frequency, urgency, suprapubic pressure. Denies flank pain or hematuria. Reports genital itching and white vaginal discharge SKIN: Denies rash or itching. MUSCULOSKELETAL: Denies back pain or myalgia. All systems reviewed & are unremarkable except as noted in HPI and below PMFSH Past Medical History Medical History BMI 25.0-25.9,adult Overweight (BMI 25.0-29.9) and not yet delivered Family History Family History Mother Diabetes mellitus Hypertension Grandparent Cancer Social History Social History Smoking status: Never smoker Alcohol intake: current Alcohol use details: occasional Substance use: never Living arrangements: with family Occupation/Education: occupation Additional occupation/education comments: [employer] Gender identity (if verbalized by the patient): Female Spiritual care concerns: No Comments At time of signature, agree with nursing past medical, surgical, social and family history. There is no relevant family history pertinent to the presenting complaint Exam Narrative: GENERAL: Well-appearing, well-nourished, and in no acute distress. HEAD: Normocephalic. EYES: PERRLA, conjunctivae clear. NECK: Supple. No lymphadenopathy CHEST: Clear to auscultation. No respiratory distress. HEART: Regular rate and rhythm. SKIN: Warm, dry, no rash. NEURO: Alert and oriented x3. PSYCH: Normal mood and affect Course Course Emergency Course: Patient is aware of diagnosis, understands and agrees to treatment plan. Anticipatory guidance given. Patient agrees to follow-up as directed and is aware of reasons to seek care at the emergency department. Portions of this record may have been created with voice recognition software Level of Care: Express Care Visit Vital Signs Vital signs: Reviewed. MDM - Female Genitourinary MDM Narrative Medical decision making narrative: Exam findings and UA show no acute concerns or changes; patient is non-toxic appearing and is in no distress. Patient is appropriate for outpatient treatment and follow-up. Differential Diagnosis Differential diagnosis: Likely urinary tract infection and cystitis Critical Care Time Critical Care Time Critical Care Time: No Discharge Plan Discharge Clinical Impression: Vaginal itching Patient Disposition: Home Condition: Stable Instructions: Yeast Infection (ED) Additional Instructions: 1) Please follow-up with your primary care doctor or wood pole treater in the next 1-2 days. 2) If you have any urgent concerns please go to the ER. 3) Please take medications as prescribed and continue taking your home medications as usual. 4) Please read and follow information included in discharge instructions. Patient Language: Welsh Prescriptions: New fluconazole 150 mg tablet 150 mg PO Q48H 3 Days Qty: 2 0RF Rx Instructions: take one dose now, and a second dose if symptoms remain in 48 hours No Action ferrous sulfate [Iron (ferrous sulfate)] 325 mg (65 mg iron) Tablet 325 mg PO DAILY cholecalciferol (vitamin D3) [Vitamin D3] 50 mcg (2,000 unit) Tablet 50 mcg PO DAILY PNV no.95-ferrous fumarate-FA [] 28 mg iron- 800 mcg Tablet 1 tablet PO DAILY norethindrone (contraceptive) 0.35 mg tablet 0.35 mg PO DAILY Qty: 84 3RF Follow-up/Referrals: Mandy Betancourt MD [Primary Care Provider] - Time of Disposition: 17:37
[2024-11-03 17:07] VITALS: BP 117/78; PULSE 80; RESP 16; TEMP 36.6; O2SAT 97
== END 2024-11-03 17:43 | disposition home or self-care (01) ==
PROVIDERS: Emergency Provider Nurse Practitioner; PCP Family Medicine
DX: N89.8 Other specified noninflammatory disorders of vagina (principal)
CPT/HCPCS: 87798; 99213; G0463